=== PATIENT | male | born 1990 | race Caucasian/White ===

== ENCOUNTER 2019-02-04 13:39 | Emergency (ER) | payer OTHER, SELFPAY ==
[2019-02-04 13:39] VITALS: BP 120/75; PULSE 90; RESP 16; TEMP 36.7
[2019-02-04 13:40] VITALS: BP 120/75; PULSE 90; RESP 16; TEMP 36.7
[2019-02-04] MEDS: HYDROcodone Bitartrate/Apap 5/325 Tablet PO (14:19)
[2019-02-04] MEDS: Penicillin Vk 250 MG Tablet 500 MG PO (14:20)
--- NOTE | 2019-02-04 14:20 | ED.VISSUMM ---
- ER Visit Summary Date of Service: 02/04/19 Chief Complaint: Dental pain History of Present Illness: The patient is a 29 M with dental pain for the past month. He was seen at an outside ED and treated with penicillin VK. His symptoms improved and then recurred today. Now he has swelling to his left mandible. No fever or systemic symptoms. Physical Examination: Vital signs unremarkable. Patient has a left mandibular abscess secondary to underlying decay. No trismus or tongue elevation. No lymphadenopathy or meningeal signs. Skin appears normal. Test Results: None indicated Emergency Department Course and Treatment: Patient has a dental abscess. This was drained with needle aspiration after the patient consented. He was started on Pen-Vee K and Schulter. Follow-up with dental. Treatment Plan: As above Disposition: Discharge Impression: 1. Dental abscess This note was generated with [employer] dictation software. It may contain incorrect words, spelling, and punctuation that were not noted in review of the chart prior to signing ED Disposition - Plan for ED Patient: Referrals: Scout Arguelles MD [Primary Care Provider] -
--- NOTE | 2019-02-04 14:22 | ED.DEP ---
ED Disposition - Plan for ED Patient: Instructions: Dental Abscess Prescriptions: Hydrocodone Bitart/Apap 5-325 [[place] 5MG-325MG] 1 tab PO Q6H PRN PRN 3 Days #12 tab PRN Reason: Pain Prescription Printed Penicillin V Potassium 500 mg PO 4X/DAY #40 tab Prescription Printed
== END 2019-02-04 14:27 | disposition home or self-care (01) ==
LOC: ED 13:56
PROVIDERS: Emergency Provider Emergency Medicine; Family Provider Family Medicine; PCP Family Medicine
DX: K04.7 Periapical abscess without sinus (principal)
CPT/HCPCS: 41800; 99283

== ENCOUNTER 2020-01-04 13:30 | Emergency (ER) | payer MEDICAID, SELFPAY ==
[2020-01-04 13:31] VITALS: BP 109/77; PULSE 82; RESP 15; TEMP 36.2; O2SAT 100; BMI 22.4
--- NOTE | 2020-01-04 14:08 | RAD_ITS ---
STUDY: X-RAY - CERVICAL SPINE REASON FOR EXAM: Male, 30 years old. right sided neck and shoulder pain after strain this morning TECHNIQUE: 3 view(s) of the cervical spine were obtained. COMPARISON: None FINDINGS: Normal anterior atlantoaxial articulation. Normal odontoid process. Normal cervical lordosis. Normal vertebral bodies and endplates. Normal disc space heights. Normal visualized intervertebral neuroforamina. The soft tissue structures are unremarkable. RAD/Cerv Spine 2 or 3 Views IMPRESSION: Normal x-ray examination of the visualized cervical spine. Electronically Signed: Rachid Scanlon MD at 14:24 EDT Tel , Service support ,
--- NOTE | 2020-01-04 14:42 | ED.VIS.GEN ---
History of Present Illness Informant: Patient Onset: Today Context: Sudden Onset Timing: Continuous Quality: sharp Location: neck Current Severity: Moderate Maximum Severity: Moderate Worsened by: movement Relieved by: nothing Associated Symptoms: denies Narrative: 30-year-old male presents to the emergency department with neck pain. He was sitting in a computer chair. He looked up and felt a crunch in his neck. No trauma. Pain does not radiate down his arms. No numbness or tingling. No weakness. No dizziness lightheadedness. No visual changes. No nausea or vomiting. No difficulty with speech or ambulation. No Weakness or paresthesias Prior similar symptoms: No Recent Illness/Hospitalization: No <Tj Redd - Last Filed: 01/04/20 14:42> <Jean Calle - Last Filed: 01/05/20 00:34> Chief Complaint: Other, Pain/Inj Past Medical History Prior records reviewed: Yes Past Medical History: None Surgical History: no surgical history Lives: With Family Smoking Status: Never smoker Alcohol: Occasional Drugs: None <Tj Redd - Last Filed: 01/04/20 14:42> <Jean Calle - Last Filed: 01/05/20 00:34> - Allergies and Home Meds Allergies/Adverse Reactions: Allergies Sulfa (Sulfonamide Antibiotics) Allergy (Verified 01/04/20 13:33) Hives Primary Care Physician: Scout Arguelles MD [Primary Care Provider] - Review of Systems All systems negative except as indicated General: Denies: Chills, Fever, Sweats Eyes: Denies: Visual changes - bilaterally, Diplopia ENT: Denies: Rhinorrhea, Sore throat Cardiovascular: Denies: Chest pain, Palpitations Respiratory: Denies: Dyspnea, Cough, Dyspnea on exertion Gastrointestinal: Denies: Abdominal pain, Nausea, Vomiting, Diarrhea, Melena, Hematochezia Genitourinary: Denies: Dysuria, Hematuria, Frequency Musculoskeletal: Reports: Neck pain. Denies: Back pain, Extremity Pain Skin: Denies: Rash, Wounds Neurological: Denies: Headache, Weakness, Numbness <Tj Redd - Last Filed: 01/04/20 14:42> Physical Exam Vital Signs/Narrative: Vital Signs Temp Pulse Resp BP Pulse Ox 01/04/20 13:31 97.2 F L 82 15 109/77 100 Inital Vital Signs reviewed: Yes General: Well nourished, Well developed, No Acute Distress Head: Normocephalic, Atraumatic Eyes: Perrl, EOMI ENT: Moist mucous membranes, No rhinorrhea Neck: Supple, - - Right-sided paraspinal pain on palpation cervical. No cervical midline thoracic midline or lumbar midline tenderness on palpation. 5 out of 5 strength testing of both upper and lower extremities. Normal upper and lower extremity pulses and sensation bilaterally Cardiovascular: Regular rate, Regular rhythm, No murmurs Respiratory: No distress, CTA bilaterally, Chest nontender Abdomen: Soft, Nontender, Nondistended, Normal bowel sounds Back: Nontender, Normal Inspection Extremities: Nontender, No edema Skin: Normal color, No rash Neurological: Alert, Oriented x3, Cranial nerves II-XII grossly intact, Normal Strength, Normal Sensation Psychological: Normal affect, Normal Mood <Tj Redd - Last Filed: 01/04/20 14:42> Diagnostic/Tx/Re-eval Impressions Cervical Spine X-Ray 01/04/20 14:08 IMPRESSION: Normal x-ray examination of the visualized cervical spine. Electronically Signed: Rachid Scanlon MD at 14:24 EDT Tel , Service support , 01/04/20 14:08 Xray Cervical [Cerv Spine 2 or 3 Views] [RAD] Stat - Medical Decision Making Patient's declined analgesia. Cervical x-ray is unremarkable. Discussed with patient he likely is a muscle strain. Patient will be discharged with Naprosyn and Flexeril he will rest and ice follow-up with his doctor or return for worsening symptoms which we discussed. <Tj Redd - Last Filed: 01/04/20 14:42> - Medical Decision Making Patient was seen with me. I did a [id number] examination with the patient. Patient presents with neck pain that began today. Patient states he was in his computer chair and turned his neck. Patient states he felt a pop at that time. Patient states the pain is worse over the lower cervical area. Patient states the pain radiates towards his right shoulder and trapezius muscle. Patient denies any paresthesias or weakness. Vital signs are stable. Patient is afebrile. Patient is in no acute distress. Oral mucosa is pink and moist. Neck is supple. Trachea is midline. There is tenderness over the lower cervical spine and right paraspinal muscles. There is no bony crepitance or step-off. There is no edema or ecchymosis. Range of motion was slightly limited in all motions of the cervical spine secondary to pain. Strength is 5/5 bilateral knee upper and lower extremities. There are no sensory deficits noted. X-rays of the cervical spine were obtained. There is no acute fracture, spondylolisthesis or spondylolysis. Patient was advised that this is most likely a muscle strain. Patient was given prescriptions for Naprosyn and Flexeril. Patient was instructed to follow-up with his primary care physician in 5 to 7 days. Patient understood and was agreeable with the plan. All questions were answered. <Jean Calle - Last Filed: 01/05/20 00:34> ED Disposition <Tj Redd - Last Filed: 01/04/20 14:42> <Jean Calle - Last Filed: 01/05/20 00:34> - Plan for ED Patient: Disposition: Home or Assisted Living Diagnosis: Cervical muscle strain Instructions: ED Sprain Strain Neck Prescriptions: cycloBENZAPRine HCl [Flexeril] 10 mg PO TID PRN #20 tab PRN Reason: Muscle Spasm Transmission Status: Received by [id number] Naproxen [Naprosyn] 500 mg PO BID PRN #20 tab Transmission Status: Received by [id number] Referrals: Scout Arguelles MD [Primary Care Provider] -
== END 2020-01-04 15:03 | disposition home or self-care (01) ==
PROVIDERS: Emergency Provider Physician Assistant Medical; PCP Family Medicine
DX: S16.1XXA Strain of muscle, fascia and tendon at neck level, initial encounter (principal); X50.1XXA Overexertion from prolonged static or awkward postures, initial encounter; Y93.89 Activity, other specified; Y92.89 Other specified places as the place of occurrence of the external cause; Y99.8 Other external cause status
CPT/HCPCS: 72040; 99281